=== PATIENT | male | born 1955 | race Caucasian/White ===

== ENCOUNTER 2017-09-01 08:05 | Emergency (ER) | payer BC ==
[2017-09-01 08:28] VITALS: BP 142/83
--- NOTE | 2017-09-01 08:41 | UC ---
HPI Febrile Illness - HPI Summary HPI Summary: The patient is a 62-year-old male with the onset yesterday evening of fever or chills headache and mild myalgias. He states that during the night he had to get up 6 times to urinate which is highly unusual for him. He has no back pain or dysuria. He denies any nausea vomiting or diarrhea. Doors frequently and checked himself for ticks. No tick bites. He denies any chest pain or shortness of breath. He has a chronic annoying cough. - History of Current Complaint Chief Complaint: UCGeneralIllness Time Seen by Provider: 09/01/17 08:28 Hx Obtained From: Patient Timing: Intermittent, Lasting Minutes Temperature: 100.6 F Initial Severity: Mild Current Severity: None Pain Intensity: 0 Pain Scale Used: 0-10 Numeric Associated Signs and Symptoms: Chills, Headache, Myalgia - Allergy/Home Medications Allergies/Adverse Reactions: Allergies Allergy/AdvReac Type Severity Reaction Status Date / Time No Known Allergies Allergy Verified 09/01/17 08:23 Home Medications: Home Medications Acetaminophen TAB* [Tylenol TAB*] 650 mg PO Q4H PRN 09/01/17 [History Confirmed 09/01/17] PMH/Surg Hx/FS Hx/Imm Hx Previously Healthy: Yes - Surgical History Surgical History: Yes Surgery Procedure, Year, and Place: Left Quadricep Tendon Rupture, 2011, - Family History Known Family History: Positive: Hypertension - Social History Alcohol Use: Rare Substance Use Type: None Smoking Status (MU): Never Smoked Tobacco Review of Systems Constitutional: Fever, Chills Skin: Negative Eyes: Negative ENT: Negative Respiratory: Negative Cardiovascular: Negative Gastrointestinal: Negative Genitourinary: Frequency, Urgency Motor: Negative Neurovascular: Negative Musculoskeletal: Negative Neurological: Headache Psychological: Negative Is Patient Immunocompromised?: No All Other Systems Reviewed And Are Negative: Yes Physical Exam Triage Information Reviewed: Yes Appearance: Well-Appearing, No Pain Distress, Well-Nourished Vital Signs: Initial Vital Signs Temp 99.3 F 09/01/17 08:19 Pulse 64 09/01/17 08:19 Resp 16 09/01/17 08:19 BP 142/83 09/01/17 08:19 Pulse Ox 94 09/01/17 08:19 Vital Signs Reviewed: Yes Eyes: Positive: Conjunctiva Clear ENT: Positive: Hearing grossly normal, TMs normal. Negative: Nasal congestion, Nasal drainage, Tonsillar swelling, Tonsillar exudate, Trismus, Muffled voice, Dental tenderness, Sinus tenderness, Uvula midline Neck: Positive: Supple, Nontender, Enlarged Nodes @ - right cervical LN, firm, nontener...has been present x 6 m or more Respiratory: Positive: Lungs clear, Normal breath sounds, No respiratory distress, No accessory muscle use Cardiovascular: Positive: RRR, No Murmur Abdomen Description: Positive: Nontender, No Organomegaly, Soft. Negative: CVA Tenderness (R), CVA Tenderness (L), Distended, Guarding Bowel Sounds: Positive: Present Musculoskeletal: Positive: ROM Intact, No Edema Neurological: Positive: Alert Psychological Exam: Normal Skin Exam: Normal Diagnostics - Laboratory Diagnostic Studies Completed/Ordered: urine analysis: tr leuks - Radiology No standard instances Xray Interpretation: No Acute Changes - CXR Radiology Interpretation Completed By: Radiologist Course/Dx - Diagnoses Clinic Provider Diagnoses: fever of uncertain etiology Discharge - Sign-Out/Discharge Documenting (check all that apply): Patient Departure - Discharge Plan Condition: Stable Disposition: HOME Patient Education Materials: Fever in Adults (ED) Referrals: No Primary Care Phys,NOPCP [Primary Care Provider] - Additional Instructions: your CXR was normal a urine culture is pending a blood count and lyme test are pending recheck for new or worsening symptoms I suggest you follow up with your MD early next week Have your MD recheck your swollen neck gland - Billing Disposition and Condition Condition: STABLE Disposition: Home
--- NOTE | 2017-09-01 09:16 | RAD ---
INDICATION: Fever, chronic cough. Chills. COMPARISON: No relevant prior exams available on the [facility] [place] [facility] PACS for comparison. TECHNIQUE: Dual energy PA and routine lateral views of the chest were obtained. REPORT: Clear lungs and pleural spaces. Negative for pneumothorax. The heart, pulmonary vasculature, and mediastinal contours are unremarkable. Unremarkable osseous structures and soft tissue contours. IMPRESSION: #. No evidence for pneumonia. Negative exam.
[2017-09-01 14:52] LABS: Hematocrit 46 % (42-52); Hemoglobin 16.2 g/dl (14.0-18.0); Mean Corpuscular HGB Conc 35 g/dl (31-36); Mean Corpuscular Hemoglobin 31 pg (27-31); Mean Corpuscular Volume 89 fL (80-94); Mean Platelet Volume 9.3 um3 (7.4-10.4); Platelet Count 180 10^3/ul (150-450); Red Blood Count 5.23 10^6/ul (4.00-5.40); Red Cell Distribution Width 14 % (10.5-15); White Blood Count 10.6 10^3/ul (3.5-10.8)
[2017-09-01 16:54] LABS: ABS Basophils 0 10^3/ul (0-0.2); ABS Eosinophils 0.1 10^3/ul (0-0.6); ABS Lymphocytes 1.7 10^3/ul (1.0-4.8); ABS Monocytes 0.8 10^3/ul (0-0.8); ABS Nucleated RBC 0 10^3/ul; Eosinophil % 0.9 % (0-6); Lymphocyte % 15.7 % (25-47); Nucleated Red Blood Cells % 0
--- NOTE | 2017-09-02 07:51 | UC ---
- Progress Note Progress Note: Here yesterday for evaluation of fever. Normal blood count with mild increase in neutrophils although total white count was normal. Call to check in, should follow up if he continues to have fever beyond another 2 days, or if clinically worsening. Discharge - Sign-Out/Discharge Documenting (check all that apply): Patient Departure - Discharge Plan Condition: Stable Disposition: HOME Patient Education Materials: Fever in Adults (ED) Referrals: Suman Saleh MD [Primary Care Provider] - No Primary Care Phys,NOPCP [Medical Doctor] - Additional Instructions: your CXR was normal a urine culture is pending a blood count and lyme test are pending recheck for new or worsening symptoms I suggest you follow up with your MD early next week Have your MD recheck your swollen neck gland - Billing Disposition and Condition Condition: STABLE Disposition: Home
== END 2017-09-01 09:44 | disposition home or self-care (01) ==
LOC: UCCORT 08:05
DX: Z51.89 Encounter for other specified aftercare (principal); R50.9 Fever, unspecified
CPT/HCPCS: 36415; 71046; 81003; 85025; 86618; 87086; 99201; G0463

== ENCOUNTER 2018-09-23 20:01 | Emergency (ER) | payer BC ==
[2018-09-23] MEDS ORDERED: methylPREDNISolone 125 MG* 2 ML VIAL IV ONE (20:06)
[2018-09-23] MEDS ORDERED: Famotidine IV* 10 MG/ML 2 ML (20 mg) IV SLOW PU ONE (20:06)
[2018-09-23 20:36] VITALS: BP 168/81
--- NOTE | 2018-09-23 20:53 | UC ---
Allergic Reaction HPI - HPI Summary HPI Summary: 63-year-old male comes in with a chief complaint of facial swelling. Last evening he got bit by some kind of insect underneath his right mandible. Woke up this morning with facial swelling. Patient's been on amoxicillin for 6 days for dental issue. He took his last dose last evening which he stopped because of the beginning of the swelling and the rash. The swelling is getting worse on his face he did take a total of 75 mg of Benadryl by mouth however the swelling continues to get worse. He does have some throat tightness. Also mild difficulty with swallowing. - History of Current Complaint Chief Complaint: UCAllergicReaction Stated Complaint: ALLERGIC REACTION Time Seen by Provider: 09/23/18 20:05 Pain Intensity: 0 - Allergies/Home Medications Allergies/Adverse Reactions: Allergies Allergy/AdvReac Type Severity Reaction Status Date / Time No Known Allergies Allergy Verified 09/23/18 20:09 Home Medications: Home Medications Ibuprofen TAB* [Motrin TAB* 600 MG] 600 mg PO Q6H PRN 09/23/18 [History Confirmed 09/23/18] diphenhydrAMINE HCl [Benadryl LIQUID 12.5 MG/5 ML] 25 mg PO DAILY PRN 09/23/18 [ History Confirmed 09/23/18] PMH/Surg Hx/FS Hx/Imm Hx Previously Healthy: Yes - Surgical History Surgical History: Yes Surgery Procedure, Year, and Place: Left Quadricep Tendon Rupture, 2011, [place] - Family History Known Family History: Positive: Hypertension - Social History Alcohol Use: Occasionally Substance Use Type: None Smoking Status (MU): Never Smoked Tobacco Review of Systems All Other Systems Reviewed And Are Negative: Yes Constitutional: Positive: Negative Skin: Positive: Other - SEE HPI Eyes: Positive: Negative ENT: Positive: Sore Throat Respiratory: Positive: Negative Cardiovascular: Positive: Negative Gastrointestinal: Positive: Negative Motor: Positive: Negative Neurovascular: Positive: Negative Musculoskeletal: Positive: Negative Neurological: Positive: Negative Psychological: Positive: Negative Is Patient Immunocompromised?: No Physical Exam Triage Information Reviewed: Yes Appearance: Well-Appearing, No Pain Distress, Well-Nourished Vital Signs: Initial Vital Signs Temp 97.5 F 09/23/18 20:03 Pulse 60 09/23/18 20:03 Resp 18 09/23/18 20:03 BP 171/86 09/23/18 20:03 Pulse Ox 97 09/23/18 20:03 Vital Signs Reviewed: Yes Eye Exam: Normal Eyes: Positive: Conjunctiva Clear ENT: Positive: Pharynx normal. Negative: Muffled voice, Hoarse voice Neck: Positive: Supple Respiratory: Positive: Lungs clear, Normal breath sounds, No respiratory distress Cardiovascular: Positive: RRR Musculoskeletal: Positive: Strength Intact, ROM Intact Neurological: Positive: Alert, Muscle Tone Normal Psychological: Positive: Normal Response To Family, Age Appropriate Behavior Skin: Positive: Other - Patient is erythema and swelling about his whole face and on his neck. His voice is normal oral pharynx is open. Allergic Reaction Course/Dx - Course Course Of Treatment: It's unclear if the allergic reaction was secondary to amoxicillin or if it was from the insect bite however patient's clinic consider himself allergic to amoxicillin from now on. Patient improved in clinic. He taking Benadryl 75 mg by mouth and in clinic he was given IV Pepcid 40 mg and IV Solu-Medrol 125 mg. No airway involvement while in clinic. Discussed further treatment with Benadryl Pepcid and prednisone if needed and go to the emergency room if worse. - Differential Dx/Diagnosis Provider Diagnosis: Allergic reaction Discharge - Sign-Out/Discharge Documenting (check all that apply): Patient Departure All imaging exams completed and their final reports reviewed: No Studies - Discharge Plan Condition: Stable Disposition: HOME Prescriptions: Famotidine TAB* [Pepcid 20 MG TAB*] 20 mg PO BID PRN #8 tab PRN Reason: Allergy Symptoms predniSONE TAB* [Deltasone 20 MG TAB*] 40 mg PO DAILY PRN #6 tab PRN Reason: Allergy Symptoms Patient Education Materials: General Allergic Reaction (ED) Referrals: Suman Saleh MD [Primary Care Provider] - Additional Instructions: FOLLOW UP WITH YOUR DOCTOR IF NOT COMPLETELY IMPROVED. GO TO THE EMERGENCY DEPARTMENT IF WORSE; DIFFICULTY SWALLOWING OR BREATHING, YOU FEEL ILL OR ANY QUESTIONS OR CONCERNS. TAKE BENADRYL 50MG EVERY 6 HOURS NEEDED. TAKE PEPCID 20MG TWICE A DAY NEEDED. TAKE THE PREDNISONE DIRECTED NEEDED. - Billing Disposition and Condition Condition: STABLE Disposition: Home
[2018-09-23] MEDS ORDERED: predniSONE TAB* 20 MG PO ONE (21:10)
[2018-09-23] MEDS ORDERED: Famotidine TAB* 20 MG PO ONE (21:10)
== END 2018-09-23 21:42 | disposition home or self-care (01) ==
LOC: UCCORT 20:01
DX: T78.40XA Allergy, unspecified, initial encounter (principal); X58.XXXA Exposure to other specified factors, initial encounter
CPT/HCPCS: 96374; 96375; 99212; A9270-GY; G0463; J2930; J7512